=== PATIENT | female | born 1970 | race Hispanic/Latino ===

== ENCOUNTER 2017-12-01 10:18 | Outpatient (CLI) | payer MEDICARE ==
--- NOTE | 2017-12-01 10:59 | XRay Report ---
Chest 2 views: History: Mass right chest. Findings: Normal cardiomediastinal silhouette. Trachea is midline. No consolidation, pneumothorax or pleural effusion. Impression No acute cardiopulmonary findings.
== END 2017-12-01 10:19 | disposition home or self-care (01) ==
LOC: XRAY 10:18
PROVIDERS: ATTEND Psychiatry & Neurology Neurology
DX: R22.2 Localized swelling, mass and lump, trunk (principal)
CPT/HCPCS: 71046